=== PATIENT | female | born 1965 | race Caucasian/White ===

== ENCOUNTER 2018-03-06 07:33 | Day surgery (SDC) | payer OTHER ==
[~2018-03-06 07:33] MED LIST: ASA81 MG PO; LOSARTAN-HCTZ1 EAC2 PO; NORFLEX PO; VITAMIN D32000 UNI1 PO
[2018-03-06] MEDS ORDERED: RECTICARE30 GM TOP (10:06)
[2018-03-06] MEDS ORDERED: PERCOCET 5-3251 EACH PO (10:07)
== END 2018-03-06 15:25 | disposition home or self-care (01) ==
LOC: CIR.AMB 07:33
DX: K64.8 Other hemorrhoids (principal); K64.4 Residual hemorrhoidal skin tags; K60.1 Chronic anal fissure